=== PATIENT | male | born 2000 | race Caucasian/White ===

== ENCOUNTER 2022-05-07 08:11 | Outpatient (CLI) | payer OTHER, SELFPAY | END 2022-05-07 08:12 | disposition home or self-care (01) | PROVIDERS: PCP Family Medicine; Visit Provider Physician Assistant Surgical | DX: T22.71 Corrosion of third degree of forearm (principal); S00-T88 Injury, poisoning and certain other consequences of external causes; T65.891A Toxic effect of other specified substances, accidental (unintentional), initial encounter | CPT/HCPCS: 99204 ==

== ENCOUNTER 2022-05-14 08:14 | Outpatient (CLI) | payer OTHER, SELFPAY | END 2022-05-14 08:15 | disposition home or self-care (01) | PROVIDERS: PCP Family Medicine; Visit Provider Physician Assistant Surgical | DX: T22.031A Burn of unspecified degree of right upper arm, initial encounter (principal); T21.23XA Burn of second degree of upper back, initial encounter; T21.06XA Burn of unspecified degree of male genital region, initial encounter | CPT/HCPCS: 99214 ==

== ENCOUNTER 2022-05-21 07:50 | Outpatient (CLI) | payer OTHER, SELFPAY | END 2022-05-21 07:51 | disposition home or self-care (01) | LOC: WOUND 07:50 | PROVIDERS: PCP Family Medicine; Visit Provider Physician Assistant Surgical | DX: T21.23XA Burn of second degree of upper back, initial encounter (principal); T22.031A Burn of unspecified degree of right upper arm, initial encounter; T21.06XA Burn of unspecified degree of male genital region, initial encounter | CPT/HCPCS: 99213 ==